=== PATIENT | female | born 1985 ===

== ENCOUNTER → 2017-01-24 | Outpatient (CLI) | payer MEDICAID ==
[2017-01-25 12:28] LABS: Basophils # (auto) 0 uL; Basophils % (auto) 0.4 % (0.0-2.0); CONDITION Y; Eosinophils # (auto) 0.1 uL; Hematocrit 38.6 % (36.0-46.0); Lymphocytes # (auto) 1.9 uL; Lymphocytes % (auto) 29.8 % (10.0-50.0); Mean Corpuscular Hemoglobin 28.3 pg (28.0-32.0); Mean Corpuscular Hgb Conc. 33.6 g/dL (32.0-36.0); Mean Corpuscular Volume 84.2 fL (80.0-100.0); Mean Platelet Volume 8.4 fL (7.4-10.4); Monocytes # (auto) 0.4 uL; Monocytes % (auto) 6.2 % (0.0-12.0); Neutrophils # (auto) 3.9 uL; Neutrophils % (auto) 62.6 % (37.0-80.0); Platelet Count (auto) 311 10^3/uL (140-450); Red Cell Distribution Width 16.1 % (11.6-16.0); White Blood Cell 6.2 10^3/uL (4.4-10.8)
[2017-02-01 16:08] LABS: African American Detect. Rate Note (.); Ashkenazi Jewish Detect. Rate Note (.); Comments: Note (.); INTERPRETATION Note (.); Method/Limitations: Note (.); Mutations Analyzed: Note (.); Other or Mixed Ethnicity Rate Note (.)
== END | disposition home or self-care (01) ==
LOC: LAB 15:31
PROVIDERS: ATTEND Obstetrics & Gynecology
DX: Z34.80 Encounter for supervision of other normal pregnancy, unspecified trimester (principal)
CPT/HCPCS: 36415; 80307; 81220; 82951; 83036; 84702; 85025; 86592; 86703; 86762; 86850; 86900; 86901; 87086; 87340